=== PATIENT | female | born 1980 ===

== ENCOUNTER 2017-07-07 15:38 | Emergency (ER) | payer OTHER ==
[2017-07-07 15:47] VITALS: O2SAT 100
[2017-07-07] MEDS ORDERED: Naproxen 550 mg Tab PO STA (16:23)
[2017-07-07 16:25] LABS: RBC URINE 1267 /hpf (0-3); URINE BILIRUBIN NEGATIVE (NEGATIVE); URINE BLOOD 3+ (NEGATIVE); URINE COLOR Yellow (YELLOW); URINE GLUCOSE (UA) NORMAL (Normal); URINE KETONE NEGATIVE (NEGATIVE); URINE LEUKOCYTE ESTERASE NEG Leu/uL (Negative); URINE PROTEIN NEGATIVE (NEGATIVE); URINE UROBILINOGEN NORMAL mg/dL (0.2-1.0)
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
[2017-07-07 18:45] VITALS: BP 111/72; PULSE 73; RESP 20; TEMP 99.1
== END 2017-07-07 18:56 | disposition home or self-care (01) ==
LOC: C.ER 15:38
DX: R10.2 Pelvic and perineal pain (principal); D25.9 Leiomyoma of uterus, unspecified; N93.9 Abnormal uterine and vaginal bleeding, unspecified; V89.2XXA Person injured in unspecified motor-vehicle accident, traffic, initial encounter
CPT/HCPCS: 76830; 76856; 81001; 84703; 96372; 99284; J1885

== ENCOUNTER 2017-11-09 11:32 | Emergency (ER) | payer OTHER ==
[2017-11-09 11:46] VITALS: RESP 16
[2017-11-09] MEDS ORDERED: Sodium Chloride 0.9% 1,000 ML IV ONE (12:10)
[2017-11-09] MEDS ORDERED: Belladonna-Phenobarbital PO STA (12:10)
--- NOTE | 2017-11-09 12:17 | C.PDOC ---
History Of Present Illness 37 y/o female presents to the ER complaining of abdominal pain and nausea which has been present for six days.Patient states that pain is generalized and strongest over the epigastric area. Patient reports pain is waxing and waning. Patient states she had several loose bowel movements.Patient reports that she took Omeprazole and she had no relief. Patient denies having any fever. Time Seen by Provider: 11/09/17 11:51 Chief Complaint (Nursing): Abdominal Pain History Per: Patient History/Exam Limitations: no limitations Onset/Duration Of Symptoms: Days Current Symptoms Are (Timing): Still Present Severity: Moderate Associated Symptoms: Nausea. denies: Fever Past Medical History Reviewed: Historical Data, Nursing Documentation, Vital Signs Vital Signs: Last Vital Signs Temp 98.6 F 11/09/17 14:31 Pulse 69 11/09/17 14:31 Resp 16 11/09/17 14:31 BP 110/73 11/09/17 14:31 Pulse Ox 100 11/09/17 14:31 - Medical History PMH: Gastritis Surgical History: No Surg Hx Family History: States: No Known Family Hx - Social History Hx Tobacco Use: No Hx Alcohol Use: No Hx Substance Use: No - Immunization History Hx Tetanus Toxoid Vaccination: No Hx Influenza Vaccination: No Hx Pneumococcal Vaccination: No Review Of Systems Except As Marked, All Systems Reviewed And Found Negative. Constitutional: Negative for: Fever, Chills Gastrointestinal: Positive for: Nausea, Abdominal Pain (pain is strongest over epigastric area), Diarrhea (Multiple loose bowel movements) Physical Exam - Physical Exam Appears: Well, No Acute Distress Skin: Normal Color, Warm Head: Atraumatic, Normacephalic Oral Mucosa: Moist Cardiovascular: Rhythm Regular Respiratory: Other (nard) Gastrointestinal/Abdominal: Soft, Tenderness (Mild epigastric tenderness), No Guarding, No Rebound Back: Normal Inspection, No CVA Tenderness Neurological/Psych: Oriented x3, Normal Speech ED Course And Treatment - Laboratory Results Result Diagrams: 11/09/17 12:45 11/09/17 12:45 O2 Sat by Pulse Oximetry: 99 (RA) Pulse Ox Interpretation: Normal Reevaluation Time: 14:13 Reassessment Condition: Improved (PS PRIOR HO GASTRITIS DX ON ENDOSCOPY. DC H2 BLOCKERS, FU PMD) Medical Decision Making Medical Decision Making: Plan: --Labs --Urinalysis --Pepcid 20 mg IVP --Zofran 4 mg IVP Disposition Counseled Patient/Family Regarding: Studies Performed, Diagnosis, Need For Followup, Rx Given - Disposition Referrals: YOUR,GI DOCTOR [Other] Disposition: HOME/ ROUTINE Disposition Time: 14:13 Condition: IMPROVED Prescriptions: Atropine/Hyoscyamine [] 1 tab PO Q6 PRN #16 tab PRN Reason: Pain, Moderate (4-7) Famotidine [Pepcid AC] 10 mg PO QN #30 tablet Ondansetron [Zofran Odt] 4 mg PO TID PRN #9 odt PRN Reason: Nausea/Vomiting Instructions: Gastritis (ED) Forms: [employer] (Luxembourgish), Work Excuse Print Language: DANISH - Clinical Impression Clinical Impression: Abdominal pain, Nausea - Scribe Statement The provider has reviewed the documentation as recorded by the Chinyere Martins Provider Attestation: All medical record entries made by the Chinyere were at my direction and personally dictated by me. I have reviewed the chart and agree that the record accurately reflects my personal performance of the history, physical exam, medical decision making, and the department course for this patient. I have also personally directed, reviewed, and agree with the discharge instructions and disposition.
[2017-11-09] MEDS ORDERED: Belladonna-Phenobarbital ONE (12:22)
[2017-11-09] MEDS ORDERED: Sodium Chloride 0.9% 1,000 ML ONE (12:22)
[2017-11-09 12:50] LABS: BASO % 0.6 % (0.0-2.0); EOS % 0.2 % (0.0-4.0); HEMATOCRIT 38.2 % (34.0-47.0); LYMPH # 1.1 K/uL (1.0-4.3); LYMPH % 13.7 % (20.0-40.0); MEAN CELL VOLUME 85.2 fL (81.0-99.0); MEAN CORPUSCULAR HEMOGLOBIN 30.1 pg (27.0-31.0); MEAN CORPUSCULAR HGB CONC 35.3 g/dL (33.0-37.0); MEAN PLATELET VOLUME 7.7 fL (7.2-11.7); MONO # 0.4 K/uL (0.0-0.8); MONO % 5.4 % (0.0-10.0); RED CELL DISTRIBUTION WIDTH 13.8 % (11.5-14.5)
[2017-11-09 13:04] LABS: RBC URINE < 1 /hpf (0-3); URINE BILIRUBIN NEGATIVE (NEGATIVE); URINE BLOOD NEGATIVE (NEGATIVE); URINE COLOR Straw (YELLOW); URINE GLUCOSE (UA) NORMAL (Normal); URINE KETONE NEGATIVE (NEGATIVE); URINE LEUKOCYTE ESTERASE NEG Leu/uL (Negative); URINE PROTEIN NEGATIVE (NEGATIVE); URINE UROBILINOGEN NORMAL mg/dL (0.2-1.0); WBC URINE < 1 /hpf (0-5)
[2017-11-09 13:24] LABS: ALB/GLOB RATIO 1.2 (1.0-2.1); ALKALINE PHOSPHATASE 74 U/L (38-126); ALT/SGPT 17 U/L (9-52); AST/SGOT 22 U/L (14-36); BILIRUBIN,TOTAL 0.6 mg/dL (0.2-1.3); BLOOD UREA NITROGEN 10 mg/dL (7-17); CARBON DIOXIDE 25 mmol/L (22-30); CHLORIDE 102 mmol/L (98-107); GFR AFRICAN-AMERICAN > 60; GLUCOSE,RANDOM 93 mg/dL (65-105); POTASSIUM 4.3 mmol/L (3.6-5.2); SODIUM 137 mmol/L (132-148); TOTAL PROTEIN 7.8 g/dL (6.3-8.3)
[2017-11-09 14:32] VITALS: BP 110/73; PULSE 69; TEMP 98.6
[2017-11-09 18:24] VITALS: O2SAT 99
== END 2017-11-09 14:38 | disposition home or self-care (01) ==
LOC: C.ER 11:32
DX: R11.0 Nausea (principal); R10.9 Unspecified abdominal pain
CPT/HCPCS: 80053; 81001; 83690; 85025; 96374; 96375; 99284; J2405; J7040